=== PATIENT | male | born 1965 | race Two or more races ===

== ENCOUNTER 2023-12-21 09:40 | Inpatient (IN) | payer BC, MEDICARE ==
[~2023-12-21] VITALS: Ht 193 cm; Wt 61.7 kg
[2023-12-21] MEDS ORDERED: ACETAMINOPHEN 325 MG TABLET PO PRN (20:30)
[2023-12-21] MEDS: TraZODone HCL 100 MG TABLET PO SCH (21:56)
[2023-12-21] MEDS: ETHYL ALCOHOL 62% ANTISEPTIC NASAL SANITIZER 0.6 ML AMPUL NASAL SCH (21:56)
[2023-12-21] MEDS: DOCUSATE SODIUM 100 MG CAPSULE PO SCH (21:56)
[2023-12-21] MEDS: MAGNESIUM OXIDE 400 MG TABLET PO SCH (21:57)
[2023-12-21] MEDS: METOPROLOL TARTRATE 25 MG TABLET PO SCH (21:57)
[2023-12-21] MEDS: 0.9% SODIUM CHLORIDE 10 ML SYRINGE IVP SCH (21:59)
[2023-12-21 22:00] VITALS: BP 102/54; PULSE 93; RESP 18; TEMP 98.2; O2SAT 96
[2023-12-21] MEDS ORDERED: SODIUM CHLORIDE 0.9% 250 ML IV ONE (23:14)
[2023-12-21] MEDS: CeFAZolin 2 GM/DEXTROSE 50 ML IV SCH (23:57)
[2023-12-22] MEDS: CHLORHEXIDINE GLUCONATE 4% 118 ML TOPICAL LIQUID TP SCH (00:37)
[2023-12-22 08:00] VITALS: BP 119/58; PULSE 98; RESP 18; TEMP 98.2; O2SAT 95
[2023-12-22 08:24] LABS: BASOPHILS % (AUTO) 1.2 % (0.0-2.0); EOSINOPHILS % (AUTO) 5.5 % (1.0-6.0); LYMPHOCYTES # (AUTO) 0.4 K/uL (1.0-4.8); LYMPHOCYTES % (AUTO) 5.5 % (22.0-44.0); MEAN CORPUSCULAR HGB CONC 33.1 G/dL (31.0-37.0); MEAN CORPUSCULAR VOLUME 97 fL (80-100); MONOCYTES # (AUTO) 0.7 K/uL (0.1-1.0); MONOCYTES % (AUTO) 9.2 % (2.0-9.0); NEUTROPHILS # (AUTO) 6.1 K/uL (1.8-7.7); NEUTROPHILS % (AUTO) 78.6 % (40.0-70.0); PLATELET COUNT (AUTO) 286 K/uL (150-450); RED BLOOD CELL COUNT(AUTO) 2.49 MIL/uL (4.50-5.90); RED CELL DISTRIBUTION WIDTH 17.5 % (11.5-14.5); WHITE BLOOD COUNT (AUTO) 7.8 K/uL (4.5-11.0)
[2023-12-22] MEDS: ASPIRIN 81 MG DR TABLET PO SCH (08:32)
[2023-12-22] MEDS: WARFARIN SODIUM 2.5 MG TABLET PO SCH (08:32)
[2023-12-22] MEDS: POTASSIUM CHLORIDE 20 MEQ ER TABLET PO SCH (08:33)
[2023-12-22] MEDS: TESTOSTERONE 1% 50 MG-5 GM GEL PACKET TD SCH (08:33)
[2023-12-22] MEDS: AMIODARONE HCL 200 MG TABLET PO SCH (08:34)
[2023-12-22 08:35] LABS: PROTHROMBIN TIME 29.3 SEC (9.4-11.6)
[2023-12-22] MEDS: BUMETANIDE 1 MG TABLET PO SCH (08:36)
[2023-12-22 08:43] LABS: ALBUMIN 1.7 g/dL (3.4-5.0); ALKALINE PHOSPHATASE 87 U/L (46-116); ANION GAP 8 mmol/L (8-16); ASPARTATE AMINOTRANSFERASE 19 U/L (15-37); BILIRUBIN,TOTAL 0.3 mg/dL (0.1-1.0); CALCIUM, TOTAL 7.8 mg/dL (8.8-10.5); CARBON DIOXIDE 29 mmol/L (22-29); CHLORIDE 102 mmol/L (98-107); CREATININE 1.13 mg/dL (0.60-1.30); GLOMERULAR FILTR. RATE CALC > 60 mL/min (>60); GLUCOSE,RANDOM 84 mg/dL (70-110); POTASSIUM 3.8 mmol/L (3.5-5.1); SODIUM SERUM 139 mmol/L (136-145); UREA NITROGEN, BLOOD 22 mg/dL (7-18)
[2023-12-22] MEDS: COLD CREAM, SKIN EMOLLIENT 340 GM JAR TP SCH (08:47)
[2023-12-22 08:56] LABS: ALANINE AMINOTRANSFERASE < 6 U/L (12-78)
[2023-12-22 11:33] LABS: ERYTHROCYTE SEDIMENTATION RATE 20 MM/HR (0-20)
[2023-12-22 11:53] LABS: C-REACTIVE PROTEIN QUANT 5.08 mg/dL (0.00-0.30)
[2023-12-22 20:15] VITALS: BP 107/57; PULSE 107; RESP 20; TEMP 98.1; O2SAT 96
[2023-12-23 08:00] VITALS: O2SAT 98
[2023-12-23 08:05] VITALS: BP 99/63; PULSE 88; RESP 18; TEMP 98; O2SAT 98
[2023-12-23] MEDS: WARFARIN SODIUM 5 MG TABLET PO SCH (08:46)
[2023-12-23 09:35] VITALS: BP 113/64; PULSE 85; RESP 18; O2SAT 97
[2023-12-23 10:18] LABS: INR 3.5 (0.9-1.1); PROTHROMBIN TIME 34.2 SEC (9.4-11.6)
[2023-12-23] MEDS: LIDOCAINE 5% TRANSDERMAL PATCH TD SCH (12:36)
[2023-12-23] MEDS: *CLINICAL-WARFARIN SODIUM DOSING CLINICAL ONE (14:16)
[2023-12-23] MEDS ORDERED: WARFARIN SODIUM-INR 2.5-3.5-RX DOSING PER PROTOCOL PO PRN (15:00)
[2023-12-23] MEDS: WARFARIN SODIUM 3 MG TABLET PO ONE (16:36)
[2023-12-23] MEDS ORDERED: WARFARIN SODIUM 5 MG TABLET PO SCH (17:00)
[2023-12-23 20:33] VITALS: BP 113/64; PULSE 107; RESP 18; TEMP 98.9; O2SAT 94
[2023-12-23] MEDS: -LIDODERM PATCH NOTE- MISC SCH (21:11)
[2023-12-23] MEDS ORDERED: SODIUM CHLORIDE 0.9% 250 ML IV ONE (23:03)
[2023-12-24 01:37] VITALS: O2SAT 94
[2023-12-24] MEDS: ATORVASTATIN CALCIUM 20 MG TABLET PO SCH (08:26)
[2023-12-24 09:25] VITALS: BP 100/65; PULSE 85; RESP 18; TEMP 98.2; O2SAT 97
[2023-12-24 11:06] LABS: BASOPHILS % (AUTO) 2.5 % (0.0-2.0); EOSINOPHILS % (AUTO) 4.3 % (1.0-6.0); HEMATOCRIT 26.4 % (41-53); HEMOGLOBIN 8.7 g/dL (13.5-17.5); LYMPHOCYTES # (AUTO) 0.5 K/uL (1.0-4.8); LYMPHOCYTES % (AUTO) 6.1 % (22.0-44.0); MEAN CORPUSCULAR HEMOGLOBIN 31.6 pg (26.0-34.0); MEAN CORPUSCULAR HGB CONC 32.8 G/dL (31.0-37.0); MEAN CORPUSCULAR VOLUME 97 fL (80-100); MONOCYTES # (AUTO) 0.6 K/uL (0.1-1.0); MONOCYTES % (AUTO) 7.9 % (2.0-9.0); NEUTROPHILS % (AUTO) 79.2 % (40.0-70.0); PLATELET COUNT (AUTO) 345 K/uL (150-450); RED BLOOD CELL COUNT(AUTO) 2.74 MIL/uL (4.50-5.90); RED CELL DISTRIBUTION WIDTH 17.3 % (11.5-14.5); WHITE BLOOD COUNT (AUTO) 7.6 K/uL (4.5-11.0)
[2023-12-24 11:17] LABS: PROTHROMBIN TIME 29.3 SEC (9.4-11.6)
[2023-12-24 11:37] LABS: CALCIUM, TOTAL 8.5 mg/dL (8.8-10.5); CREATININE 1.31 mg/dL (0.60-1.30); POTASSIUM 4.3 mmol/L (3.5-5.1)
[2023-12-24 11:58] VITALS: O2SAT 97
[2023-12-24] MEDS: WARFARIN SODIUM 3 MG TABLET PO ONE (16:45)
[2023-12-24 20:00] VITALS: BP 121/66; PULSE 109; RESP 18; TEMP 98.2; O2SAT 97
[2023-12-25 08:00] VITALS: BP 102/64; PULSE 93; RESP 18; TEMP 98.1; O2SAT 95
[2023-12-25 08:27] LABS: BASOPHILS % (AUTO) 3.1 % (0.0-2.0); EOSINOPHILS % (AUTO) 6.6 % (1.0-6.0); HEMATOCRIT 24.6 % (41-53); HEMOGLOBIN 8.1 g/dL (13.5-17.5); LYMPHOCYTES # (AUTO) 0.4 K/uL (1.0-4.8); LYMPHOCYTES % (AUTO) 5.9 % (22.0-44.0); MEAN CORPUSCULAR HEMOGLOBIN 31.8 pg (26.0-34.0); MEAN CORPUSCULAR HGB CONC 33.1 G/dL (31.0-37.0); MEAN CORPUSCULAR VOLUME 96 fL (80-100); MONOCYTES # (AUTO) 0.5 K/uL (0.1-1.0); MONOCYTES % (AUTO) 8.6 % (2.0-9.0); NEUTROPHILS # (AUTO) 4.7 K/uL (1.8-7.7); NEUTROPHILS % (AUTO) 75.8 % (40.0-70.0); PLATELET COUNT (AUTO) 276 K/uL (150-450); RED BLOOD CELL COUNT(AUTO) 2.56 MIL/uL (4.50-5.90); WHITE BLOOD COUNT (AUTO) 6.2 K/uL (4.5-11.0)
[2023-12-25 08:43] LABS: INR 3.4 (0.9-1.1); PROTHROMBIN TIME 32.9 SEC (9.4-11.6)
[2023-12-25 08:51] LABS: ALBUMIN 1.8 g/dL (3.4-5.0); ALKALINE PHOSPHATASE 84 U/L (46-116); ANION GAP 5 mmol/L (8-16); ASPARTATE AMINOTRANSFERASE 19 U/L (15-37); BILIRUBIN,TOTAL 0.3 mg/dL (0.1-1.0); CALCIUM, TOTAL 8.1 mg/dL (8.8-10.5); CARBON DIOXIDE 29 mmol/L (22-29); CHLORIDE 102 mmol/L (98-107); CREATININE 1.13 mg/dL (0.60-1.30); GLOMERULAR FILTR. RATE CALC > 60 mL/min (>60); GLUCOSE,RANDOM 84 mg/dL (70-110); SODIUM SERUM 136 mmol/L (136-145); TOTAL PROTEIN, SERUM 6.1 g/dL (6.4-8.2); UREA NITROGEN, BLOOD 19 mg/dL (7-18)
[2023-12-25 09:10] LABS: ALANINE AMINOTRANSFERASE < 6 U/L (12-78)
[2023-12-25] MEDS: BUMETANIDE 1 MG TABLET PO SCH (09:10)
[2023-12-25] MEDS: WARFARIN SODIUM 2.5 MG TABLET PO ONE (16:50)
[2023-12-25] MEDS ORDERED: WARFARIN SODIUM 2.5 MG TABLET PO SCH (17:00)
[2023-12-25 20:00] VITALS: BP 105/57; PULSE 95; RESP 18; TEMP 98; O2SAT 95
[2023-12-25 21:45] VITALS: BP 91/53; PULSE 102
[2023-12-25 22:25] VITALS: O2SAT 95
[2023-12-25 23:00] VITALS: BP 103/56; PULSE 101
[2023-12-26 08:08] VITALS: BP 116/72; PULSE 102; RESP 18; O2SAT 95
[2023-12-26 08:14] LABS: CHOL/HDL RATIO 2.1 (4.2-7.3)
[2023-12-26 08:21] LABS: PROTHROMBIN TIME 29.2 SEC (9.4-11.6)
[2023-12-26 11:05] VITALS: O2SAT 95
[2023-12-26] MEDS: WARFARIN SODIUM 3 MG TABLET PO ONE (17:19)
[2023-12-26 20:02] VITALS: BP 120/61; PULSE 72; RESP 19; TEMP 98.3; O2SAT 98
[2023-12-26 21:09] VITALS: O2SAT 97
[2023-12-26 21:37] VITALS: BP 100/60; PULSE 99
[2023-12-26 22:10] VITALS: BP 112/68; PULSE 104
[2023-12-27] MEDS ORDERED: TEST5GEL27 TD (04:22)
[2023-12-27] MEDS ORDERED: ASPI-1450 PO (04:22)
[2023-12-27] MEDS ORDERED: ATOR20TA PO (04:22)
[2023-12-27] MEDS ORDERED: METO25 PO (04:22)
[2023-12-27] MEDS ORDERED: AMIO200T68 PO (04:22)
[2023-12-27 08:00] VITALS: BP 106/62; PULSE 94; RESP 19; TEMP 98.3; O2SAT 94
[2023-12-27 09:03] VITALS: BP 100/64; PULSE 54; RESP 18; O2SAT 97
[2023-12-27 10:50] LABS: PROTHROMBIN TIME 29.3 SEC (9.4-11.6)
[2023-12-27] MEDS ORDERED: ASPI-1444 PO (11:20)
[2023-12-27] MEDS: WARFARIN SODIUM 3 MG TABLET PO ONE (17:26)
[2023-12-27 20:35] VITALS: BP 102/63; PULSE 105; RESP 19; TEMP 98.3; O2SAT 95
[2023-12-27 21:42] VITALS: O2SAT 95
[2023-12-28 08:30] VITALS: BP 107/62; PULSE 94; RESP 18; TEMP 97.8; O2SAT 95
[2023-12-28 09:28] LABS: INR 2.5 (0.9-1.1); PROTHROMBIN TIME 24.6 SEC (9.4-11.6)
[2023-12-28 09:50] VITALS: O2SAT 95
[2023-12-28] MEDS ORDERED: SODIUM CHLORIDE 0.9% 100 ML ONE (14:06)
[2023-12-28] MEDS ORDERED: SODIUM CHLORIDE 0.9% 250 ML IV ONE (14:09)
[2023-12-28] MEDS: WARFARIN SODIUM 2 MG TABLET PO SCH (16:37)
[2023-12-28 20:01] VITALS: BP 110/62; PULSE 107; RESP 18; TEMP 98.2; O2SAT 97
[2023-12-28] MEDS: BUMETANIDE 1 MG TABLET PO SCH (21:04)
[2023-12-28 21:56] VITALS: O2SAT 97
[2023-12-29 07:39] LABS: BASOPHILS % (AUTO) 3.3 % (0.0-2.0); EOSINOPHILS % (AUTO) 6.2 % (1.0-6.0); HEMATOCRIT 24.7 % (41-53); HEMOGLOBIN 7.9 g/dL (13.5-17.5); LYMPHOCYTES # (AUTO) 0.6 K/uL (1.0-4.8); LYMPHOCYTES % (AUTO) 10.4 % (22.0-44.0); MEAN CORPUSCULAR HEMOGLOBIN 31.1 pg (26.0-34.0); MEAN CORPUSCULAR HGB CONC 32.2 G/dL (31.0-37.0); MEAN CORPUSCULAR VOLUME 97 fL (80-100); MONOCYTES # (AUTO) 0.5 K/uL (0.1-1.0); MONOCYTES % (AUTO) 9.4 % (2.0-9.0); NEUTROPHILS % (AUTO) 70.7 % (40.0-70.0); PLATELET COUNT (AUTO) 302 K/uL (150-450); RED BLOOD CELL COUNT(AUTO) 2.56 MIL/uL (4.50-5.90); RED CELL DISTRIBUTION WIDTH 16.7 % (11.5-14.5); WHITE BLOOD COUNT (AUTO) 5.6 K/uL (4.5-11.0)
[2023-12-29 07:48] LABS: ERYTHROCYTE SEDIMENTATION RATE 20 MM/HR (0-20)
[2023-12-29 08:00] VITALS: BP 112/63; PULSE 90; RESP 18; TEMP 97.8; O2SAT 95
[2023-12-29 08:05] LABS: ALBUMIN 1.7 g/dL (3.4-5.0); ALKALINE PHOSPHATASE 82 U/L (46-116); ANION GAP 7 mmol/L (8-16); ASPARTATE AMINOTRANSFERASE 18 U/L (15-37); BILIRUBIN,TOTAL 0.3 mg/dL (0.1-1.0); CALCIUM, TOTAL 8.1 mg/dL (8.8-10.5); CARBON DIOXIDE 28 mmol/L (22-29); CHLORIDE 102 mmol/L (98-107); CREATININE 1.17 mg/dL (0.60-1.30); GLOMERULAR FILTR. RATE CALC > 60 mL/min (>60); GLUCOSE,RANDOM 85 mg/dL (70-110); POTASSIUM 4.2 mmol/L (3.5-5.1); SODIUM SERUM 137 mmol/L (136-145); TOTAL PROTEIN, SERUM 5.9 g/dL (6.4-8.2); UREA NITROGEN, BLOOD 17 mg/dL (7-18)
[2023-12-29 08:06] LABS: INR 2.5 (0.9-1.1); PROTHROMBIN TIME 25.1 SEC (9.4-11.6)
[2023-12-29 08:41] LABS: ALANINE AMINOTRANSFERASE < 6 U/L (12-78)
[2023-12-29 20:02] VITALS: BP 104/59; PULSE 83; RESP 18; TEMP 97.9; O2SAT 96
[2023-12-29 21:59] VITALS: O2SAT 96
[2023-12-30 09:52] VITALS: BP 118/69; PULSE 98; RESP 18; TEMP 97.8; O2SAT 95; O2SAT 96
[2023-12-30 20:00] VITALS: BP 106/58; PULSE 87; RESP 18; TEMP 97.9; O2SAT 96
[2023-12-31 08:00] VITALS: BP 107/67; PULSE 94; RESP 19; TEMP 98; O2SAT 95
[2023-12-31 08:29] LABS: INR 2.5 (0.9-1.1); PROTHROMBIN TIME 24.4 SEC (9.4-11.6)
[2023-12-31] MEDS: BUMETANIDE 1 MG TABLET PO SCH (08:36)
[2023-12-31] MEDS: OxyCODONE HCL 5 MG IR TABLET PO PRN (14:21)
[2023-12-31 20:00] VITALS: O2SAT 98
[2023-12-31 20:30] VITALS: BP 123/77; PULSE 74; RESP 19; TEMP 98.1; O2SAT 97
[2024-01-01 08:00] VITALS: BP 114/58; PULSE 92; RESP 18; TEMP 98; O2SAT 95
[2024-01-01 15:04] VITALS: O2SAT 95
[2024-01-01 20:00] VITALS: BP 108/67; PULSE 97; RESP 18; TEMP 97.9; O2SAT 95
[2024-01-02 10:37] VITALS: BP 108/59; PULSE 92; RESP 18; TEMP 98; O2SAT 94
[2024-01-02 20:16] VITALS: BP 112/58; PULSE 101; RESP 18; TEMP 98; O2SAT 97
[2024-01-03 01:25] VITALS: O2SAT 97
[2024-01-03] MEDS ORDERED: BUME1TAB50 PO (05:12)
[2024-01-03 08:15] VITALS: BP 97/56; PULSE 89; RESP 18; TEMP 98.2; O2SAT 95
[2024-01-03] MEDS ORDERED: DOCUSATE SODIUM 100 MG CAPSULE PO PRN (18:15)
[2024-01-03 20:00] VITALS: BP 114/58; PULSE 100; RESP 18; TEMP 98.4; O2SAT 95
[2024-01-04 08:05] VITALS: BP 121/66; PULSE 85; RESP 18; TEMP 98.2; O2SAT 98
[2024-01-04 09:26] LABS: INR 2.1 (0.9-1.1); PROTHROMBIN TIME 21.1 SEC (9.4-11.6)
[2024-01-04 11:40] VITALS: O2SAT 98
[2024-01-04] MEDS: WARFARIN SODIUM 5 MG TABLET PO SCH (16:28)
[2024-01-04 20:00] VITALS: BP 100/61; PULSE 96; RESP 18; TEMP 98.1; O2SAT 96
[2024-01-04 21:00] VITALS: BP 103/63; PULSE 104; RESP 18; O2SAT 96
[2024-01-05 08:00] VITALS: BP 109/66; PULSE 92; RESP 18; TEMP 97.7; O2SAT 95
[2024-01-05 08:55] LABS: BASOPHILS % (AUTO) 2.8 % (0.0-2.0); EOSINOPHILS % (AUTO) 4.4 % (1.0-6.0); HEMOGLOBIN 8.9 g/dL (13.5-17.5); LYMPHOCYTES # (AUTO) 0.7 K/uL (1.0-4.8); LYMPHOCYTES % (AUTO) 12.2 % (22.0-44.0); MEAN CORPUSCULAR HEMOGLOBIN 31.5 pg (26.0-34.0); MEAN CORPUSCULAR VOLUME 95 fL (80-100); MONOCYTES # (AUTO) 0.6 K/uL (0.1-1.0); MONOCYTES % (AUTO) 9.7 % (2.0-9.0); NEUTROPHILS # (AUTO) 4.1 K/uL (1.8-7.7); NEUTROPHILS % (AUTO) 70.9 % (40.0-70.0); PLATELET COUNT (AUTO) 338 K/uL (150-450); RED BLOOD CELL COUNT(AUTO) 2.83 MIL/uL (4.50-5.90); RED CELL DISTRIBUTION WIDTH 16.8 % (11.5-14.5); WHITE BLOOD COUNT (AUTO) 5.7 K/uL (4.5-11.0)
[2024-01-05 09:01] LABS: CALCIUM, TOTAL 8.7 mg/dL (8.8-10.5); CREATININE 1.24 mg/dL (0.60-1.30); MAGNESIUM 1.9 mg/dL (1.80-2.40); POTASSIUM 4.3 mmol/L (3.5-5.1)
[2024-01-05] MEDS: LIDOCAINE 5% TRANSDERMAL PATCH TD PRN (13:52)
[2024-01-05 20:05] VITALS: O2SAT 95
[2024-01-05 20:21] VITALS: BP 106/67; PULSE 103; RESP 19; TEMP 97.8; O2SAT 95
[2024-01-05] MEDS: NYSTATIN 15 GM POWDER BOTTLE TP SCH (20:25)
[2024-01-06 08:00] VITALS: BP 101/53; PULSE 85; RESP 18; TEMP 97.7; O2SAT 95
[2024-01-06] MEDS: MAGNESIUM OXIDE 400 MG TABLET PO SCH (09:04)
[2024-01-06] MEDS: POTASSIUM CHLORIDE 10 MEQ ER TABLET PO SCH (09:04)
[2024-01-06 20:41] VITALS: BP 108/64; PULSE 99; RESP 18; TEMP 98.1; O2SAT 99
[2024-01-07 00:55] VITALS: O2SAT 99
[2024-01-07 07:57] LABS: INR 2.8 (0.9-1.1); PROTHROMBIN TIME 27.7 SEC (9.4-11.6)
[2024-01-07 08:00] VITALS: BP 102/60; PULSE 94; RESP 18; TEMP 98; O2SAT 95
[2024-01-07 20:46] VITALS: BP 120/70; PULSE 103; RESP 18; TEMP 97.5; O2SAT 97
[2024-01-07 23:53] VITALS: O2SAT 97
[2024-01-08 08:00] VITALS: BP 111/63; PULSE 71; RESP 19; TEMP 98.2; O2SAT 95
[2024-01-08 20:00] VITALS: BP 120/67; PULSE 113; RESP 18; TEMP 98.6; O2SAT 98
[2024-01-09 08:05] VITALS: BP 97/62; PULSE 82; RESP 18; TEMP 98; O2SAT 98
[2024-01-09 19:05] VITALS: O2SAT 98
[2024-01-09 22:22] VITALS: BP 113/66; PULSE 97; RESP 18; TEMP 98; O2SAT 98
[2024-01-09 23:00] VITALS: O2SAT 98
[2024-01-10 08:00] VITALS: BP 104/60; PULSE 91; RESP 18; TEMP 98.2; O2SAT 95
[2024-01-10 20:00] VITALS: BP 102/67; PULSE 111; RESP 18; TEMP 98; O2SAT 98
[2024-01-11 07:38] LABS: BASOPHILS % (AUTO) 1.6 % (0.0-2.0); EOSINOPHILS % (AUTO) 3.5 % (1.0-6.0); HEMATOCRIT 27.9 % (41-53); HEMOGLOBIN 9.1 g/dL (13.5-17.5); LYMPHOCYTES # (AUTO) 0.7 K/uL (1.0-4.8); LYMPHOCYTES % (AUTO) 10.5 % (22.0-44.0); MEAN CORPUSCULAR HEMOGLOBIN 30.8 pg (26.0-34.0); MEAN CORPUSCULAR HGB CONC 32.7 G/dL (31.0-37.0); MEAN CORPUSCULAR VOLUME 94 fL (80-100); MONOCYTES # (AUTO) 0.6 K/uL (0.1-1.0); MONOCYTES % (AUTO) 9.2 % (2.0-9.0); NEUTROPHILS % (AUTO) 75.2 % (40.0-70.0); PLATELET COUNT (AUTO) 307 K/uL (150-450); RED BLOOD CELL COUNT(AUTO) 2.96 MIL/uL (4.50-5.90); RED CELL DISTRIBUTION WIDTH 16.3 % (11.5-14.5); WHITE BLOOD COUNT (AUTO) 6.6 K/uL (4.5-11.0)
[2024-01-11 07:46] LABS: CALCIUM, TOTAL 8.6 mg/dL (8.8-10.5); CREATININE 1.31 mg/dL (0.60-1.30); MAGNESIUM 1.8 mg/dL (1.80-2.40); POTASSIUM 3.7 mmol/L (3.5-5.1)
[2024-01-11 07:49] LABS: INR 2.9 (0.9-1.1); PROTHROMBIN TIME 28.2 SEC (9.4-11.6)
[2024-01-11 08:00] VITALS: BP 110/51; PULSE 79; RESP 18; TEMP 98.1; O2SAT 97
[2024-01-11 20:00] VITALS: BP 106/78; PULSE 106; RESP 18; TEMP 97.9; O2SAT 99
[2024-01-12 08:05] VITALS: BP 102/56; PULSE 84; RESP 18; TEMP 97.7; O2SAT 98
[2024-01-12 10:30] VITALS: BP 111/55; PULSE 86; RESP 18; O2SAT 98
[2024-01-12 14:42] VITALS: O2SAT 98
[2024-01-12 19:30] VITALS: BP 112/72; PULSE 86; RESP 18; TEMP 97.6; O2SAT 97
[2024-01-12 23:08] VITALS: O2SAT 97
[2024-01-13 08:05] VITALS: BP 99/56; PULSE 88; RESP 18; TEMP 98; O2SAT 95
[2024-01-13 09:15] VITALS: BP 103/68; PULSE 101; RESP 18
[2024-01-13 21:34] VITALS: BP 101/58; PULSE 94; RESP 18; TEMP 98.2; O2SAT 96
[2024-01-13 21:35] VITALS: O2SAT 96
[2024-01-14] MEDS ORDERED: MAGN400T57 PO (03:56)
[2024-01-14] MEDS ORDERED: WARF5TAB9 PO (03:56)
[2024-01-14] MEDS ORDERED: POTA-92 PO (03:56)
[2024-01-14 07:23] LABS: CALCIUM, TOTAL 8.5 mg/dL (8.8-10.5); CREATININE 1.28 mg/dL (0.60-1.30); POTASSIUM 3.5 mmol/L (3.5-5.1)
[2024-01-14 07:24] LABS: PROTHROMBIN TIME 39.3 SEC (9.4-11.6)
[2024-01-14 07:29] LABS: INR 4.1 (0.9-1.1)
[2024-01-14 08:05] VITALS: BP 109/62; PULSE 80; RESP 18; TEMP 98; O2SAT 98
[2024-01-14] MEDS ORDERED: WARFARIN SODIUM-INR 2.5-3.5-RX DOSING PER PROTOCOL PO PRN (08:15)
[2024-01-14 18:39] VITALS: O2SAT 98
[2024-01-14 20:02] VITALS: BP 118/72; PULSE 101; RESP 18; TEMP 97.9; O2SAT 99
[2024-01-14 22:54] VITALS: O2SAT 99
[2024-01-15 08:00] VITALS: BP 106/67; PULSE 87; RESP 18; TEMP 97.9; O2SAT 97
[2024-01-15 09:11] LABS: INR 1.3 (0.9-1.1)
[2024-01-15] MEDS ORDERED: METO25 PO (09:33)
[2024-01-15] MEDS ORDERED: BUME1TAB50 PO (09:33)
[2024-01-15] MEDS ORDERED: POTA-92 PO (09:33)
[2024-01-15] MEDS ORDERED: AMIO200 PO (09:33)
[2024-01-15] MEDS ORDERED: ASPI-1444 PO (09:33)
[2024-01-15] MEDS ORDERED: MAGN400T57 PO (09:33)
[2024-01-15] MEDS ORDERED: ATOR20TA65 PO (09:33)
[2024-01-15] MEDS ORDERED: WARF5TAB9 PO (09:33)
[2024-01-15] MEDS ORDERED: TEST5GEL27 TD (09:33)
[2024-01-15] MEDS ORDERED: WARFARIN SODIUM 5 MG TABLET PO ONE (17:00)
== END 2024-01-15 14:20 | disposition home health service (06) | DRG 64 ==
LOC: 2WR 09:40
PROVIDERS: ADMIT Physical Medicine & Rehabilitation; ATTEND Physical Medicine & Rehabilitation
DX: I63.412 Cerebral infarction due to embolism of left middle cerebral artery (principal); A41.9 Sepsis, unspecified organism; I33.0 Acute and subacute infective endocarditis; J96.90 Respiratory failure, unspecified, unspecified whether with hypoxia or hypercapnia; R65.21 Severe sepsis with septic shock; G82.20 Paraplegia, unspecified; Q87.40 Marfan syndrome, unspecified; E46 Unspecified protein-calorie malnutrition; G62.81 Critical illness polyneuropathy; N17.9 Acute kidney failure, unspecified; Z68.1 Body mass index [BMI] 19.9 or less, adult; B95.61 Methicillin susceptible Staphylococcus aureus infection as the cause of diseases classified elsewhere; I50.9 Heart failure, unspecified; R53.81 Other malaise; F43.20 Adjustment disorder, unspecified; M41.84 Other forms of scoliosis, thoracic region; I48.0 Paroxysmal atrial fibrillation; G89.29 Other chronic pain; M54.6 Pain in thoracic spine; F41.1 Generalized anxiety disorder; R13.10 Dysphagia, unspecified; D63.8 Anemia in other chronic diseases classified elsewhere; Z74.09 Other reduced mobility; Z79.01 Long term (current) use of anticoagulants; Z95.3 Presence of xenogenic heart valve
CPT/HCPCS: 71045; 71250; 80048; 80053; 80061; 82271; 83735; 83880; 85025; 85610; 85651; 86140; 87040; 87081; 92507; 92523; 92526; 93005; 97110; 97112; 97116; 97163; 97167; 97530; 97535; 99285; 99366; J0690; J7050; 36415-L1; 36415-TC